=== PATIENT | female | born 1945 | race Caucasian/White ===

== ENCOUNTER → 2017-12-30 10:30 | Outpatient (CLI) | payer OTHER, MEDICARE, SELFPAY | PROVIDERS: PCP Family Medicine; Visit Provider Student in an Organized Health Care Education/Training Program | DX: Z47.1 Aftercare following joint replacement surgery (principal); Z96.651 Presence of right artificial knee joint | CPT/HCPCS: 99213 ==

== ENCOUNTER 2018-01-01 16:00 | Outpatient (RCR) | payer OTHER, MEDICARE, SELFPAY ==
--- NOTE | 2017-12-04 09:21 | NT_ITS ---
12/04/17 No show. 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
--- NOTE | 2017-12-05 09:50 | PTTR_ITS ---
DATE: 12/05/17 SUBJECTIVE: Pt reports that she is still experiencing difficulty sleeping through the night. She states that she finds it best to be in the recliner. OBJECTIVE: Manual therapy: ([id number][1). Pt received tibial femoral and patella femoral joint mobilization to the involved LE. Pt received AAROM into knee flexion while seated with her legs off from the plinth. Pt was able to achieve 116 degrees knee flexion after mobilization was performed and lacking approx -5 degrees knee extension. Therapeutic procedures (01331p9). * X Provided skilled instruction in proper exercise performance: Pt completed open and closed chain LE strengthening, functional sit to stands with glute sets, wobble board, and cardio on the Nu Step/treadmill/UBE as per flow sheet. Pt's vitals were taken please see flow sheet for specifics. Pt was able to tolerate a slight increase in her program today. Pt did require frequent rest periods due to fatigue and slight SOB. Pt did have breakfast this am so she did not experience any dizziness today. Direct treatment time: 35 Total treatment time: 50
--- NOTE | 2017-12-10 10:19 | PTTR_ITS ---
DATE: 12/10/17 SUBJECTIVE: Kate states that she continues to have pain across the superior aspect of her R knee. She states that she has not been sleeping well due to the discomfort in her knee. She reports that she is still taking her Oxycodone regularly, and she is icing occasionally. She has a follow up with Dr. Hernandez on 12/30, and she is hoping that at that appointment, he will clear her to return to work, 4 hours per day. OBJECTIVE: Manual therapy: (62572f8). With patient seated at the edge of the plinth, performed AP/PA glides to R tibiofemoral joint. Mobilized into flexion using METs for improved ROM, where she was able to achieve 114 degrees with moderate overpressure. With patient in supine, performed AP/PA glides in loose-packed position, followed by patellar mobs in all planes. Performed hamstring stretching, then mobilized into extension utilizing METs for improved ROM, where patient was lacking 8 degrees of extension with moderate overpressure. Therapeutic procedures ([id number]). * [X] See flow sheet: Patient performed an open and closed chain LE strengthening program, as per flow sheet. Added step-downs to her program today , with good tolerance. She was able to tolerated a slight progression in her program today, modifications made are noted on flow sheet. * [X] Provided skilled instruction in proper exercise performance. * [X] Provided skilled manual cues to facilitate proper muscle recruitment and/or movement pattern: Patient required verbal and tactile cuing throughout to avoid compensatory movement patterns as well as to isolate specific musculature for proper exercise performance. * [X] Other: Patient completed the remainder of her program via [facility]. She ends with cryo to R knee x10 minutes, at no charge. Direct treatment time: 45 minutes Total treatment time: 70 minutes
--- NOTE | 2017-12-12 10:51 | NT_ITS ---
12/12/17 Cancelled today's PT session. 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
--- NOTE | 2017-12-13 11:17 | PTTR_ITS ---
DATE: 12/13/17 SUBJECTIVE: Pt reports that she is doing well today. Compliant with HEP: X Yes OBJECTIVE: Manual therapy: (32390n1). Pt received tibial femoral and patella femoral joint mobilization to the involved LE. Pt received mobilization into knee flexion while seated with legs off from the plinth. After mobilization pt was able to achieve 116 degrees knee flexion. Pt was lacking -16 degrees knee ext. Therapeutic procedures (67717e6). * X Provided skilled instruction in proper exercise performance: Pt completed open and closed chain LE strengthening, glute strengthening, functional sit to stands with glute sets, wobble board, and cardio as per flow sheet. I went over different stretching techniques to increase her knee extension. Pt completed her cardio with the wellness with Denton Escamilla Direct treatment time: 40 Total treatment time: 60
--- NOTE | 2017-12-16 08:30 | PN_ITS ---
DATE: December 16, 2017 REFERRING: Dante Hernandez MD REFERRING PROVIDER DIAGNOSIS:: S/p TKA R PHYSICAL THERAPY DIAGNOSIS: REPORTING PERIOD (for progress note and discharge note only): 11/05/17 to SUBJECTIVE: Kate notes weekly improvement in her knee pain. Her only complaint is of occasional discomfort throughout the posterior aspect of the knee with forced end range extension; and the anterior aspect of the knee with flexion. Her pre op pain has resolved. OBJECTIVE: Patient is s/p R TKA on 10/08/17. She has been undergoing PT 2x a week at our facility since one month post op. She is hoping to return to work at least 4 hours a day, once she sees her orthopedist next which is in January. Gait: She is ambulating without assistive device with minimal antalgia on the R. Has slightly excessive knee flexion during stance phase bilaterally. In standing position, with heel and back against the wall: Distance between calf is approximately 2 with end range drawing throughout the posterior aspect of the knees. ROM: In sitting position her active knee flexion is approximately 100 degrees and with mobilization I can get her to 120 with end range drawing throughout the anterior aspect of the knee. She has good accessory movements with PA glides and her tibial ER is 30 degrees, IR is at 10 degrees. Has (+) warmth throughout the R knee yet, which is to be expected. (-) erythema. Her extension is at -15 degrees, with mobilization x5 I can eventually get her down to below -10. At end range I include some anterior tibial translation and some light traction, which relieves some of the tension. She has an extension lag of less than 5 degrees. We work on some terminal knee extension with rolled pillow under her knee, she is going to include this at home. She has good patella movement. Treatment: Manual Therapy [id number] Treatment time: 30 mins Direct/Total. ASSESSMENT: Continues to make steady progress with her ROM, gait mechanics and strength. 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 I am going to cut her formal treatments down to 1x a week now, but she can come in the other 4 days for working on equipment for cardiopulmonary conditioning and overall strengthening in an independent manner. G-Codes (fill in modifier after appropriate code): Patient's primary functional limitation remains in the category of: __X__ Mobility - walking and moving around : [id number] Projected goal: __x__ Mobility - walking and moving around: [id number] STG: __6__ weeks. 1: Increase ROM of the R knee to 115 degrees of flexion, - 5 degrees extension. (MET) 2: Improve dynamic stability of the R hip and knee with emphasis on the quadricep mechanism. (PROGRESSING TOWARDS) 3: Decrease swelling of the R LE. (PARTIALLY MET) 4: Improve gait mechanics in order to increase tolerance to weight bearing activities and ability to perform all of her ADL's. (PROGRESSING TOWARDS) LTG: __12__ weeks. ALL REMAIN APPROPRIATE AND PROGRESSING TOWARDS 1: Return to premorbid level of function. 2: Return to full, pain-free, functional mobility. 3: Independent with self-maintenance program. 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 PLAN: Have Kate continue to work on her ROM, particularly terminal extension, not only passively, but actively. Begin a Minimally Supervised Program (MSP) tomorrow, when she is cleared for safe use of the equipment, etc. . . . DLW/dl
--- NOTE | 2017-12-16 09:42 | PTTR_ITS ---
DATE: 12/16/17 OBJECTIVE: This is co tx with PT Carlos A Moulton please refer to his note for specifics. Therapeutic procedures (62033l1). Consisting of light proprioceptive activities on the wobble board as well as open and closed chain LE strengthening, glute strengthening, functional sits to stands without the use of her hands with glute sets and cardiovascular exercise with the wellness. I had re-written pt's chart to have her better understand how to fill out and complete her charting. Pt is going to possibly have 1 more appt with me and then complete the MSP program and just be mobilized 1x per week. Direct treatment time: 25 minutes Total treatment time: 45 minutes
--- NOTE | 2017-12-23 15:50 | PTTR_ITS ---
DATE: 12/23/17 SUBJECTIVE: Kate states that she came from helping weed her sister's garden today, so her knee is a little sore for squatting and kneeling. OBJECTIVE: Manual therapy: (46068x6). With patient seated at edge of plinth, perform AP/ PA glides to tibiofemoral joint, followed by mobilization into flexion, where she is able to achieve 114 degrees of flexion with moderate overpressure and discomfort at end range. With patient in supine, perform patellar glides in all planes, followed by AP/PA glides in loose-packed position, followed by mobilization into extension utilizing METs for improved ROM. Patient was able to achieve -5 degrees of extension with minimal overpressure and discomfort at end range. Therapeutic procedures (29819l2). * [X] See flow sheet: Continued review of ther ex program for LE strengthening and stabilization for MSP initiation. Patient requires cuing for set-up, documentation, and to avoid compensatory movement patterns with exercises. * [X] Other: Patient completed the remainder of her ther ex program via [facility]. Direct treatment time: 30 minutes Total treatment time: 55 minutes
--- NOTE | 2018-01-01 16:30 | PTTR_ITS ---
DATE: 01/01/18 SUBJECTIVE: Pt reports that the heat is getting to her. She states that she had an appointment with the surgeon and his only concern was the adhered portion on the superior aspect of the scar and he informed her to massage it. OBJECTIVE: Manual therapy: (55649z1). Pt received tibial femoral and patella femoral joint mobilization to the involved LE. Pt received AAROM into knee flexion while in the seated position and was able to achieve 115 degrees knee flexion and lacking -8 degrees knee extension. Therapeutic procedures (73010b8). * X See flow sheet: Pt was instructed on her second MSP today. Pt seems to know her program well. I did make some slight increases to her session today. Pt should be able to complete her program independently next visit. Direct treatment time: 35 Total treatment time: 60
== END 2018-01-03 23:59 | disposition home or self-care (01) ==
LOC: PT 16:00
PROVIDERS: PCP Family Medicine; Referring Provider Student in an Organized Health Care Education/Training Program; Visit Provider Student in an Organized Health Care Education/Training Program
DX: Z47.1 Aftercare following joint replacement surgery (principal); Z96.651 Presence of right artificial knee joint
CPT/HCPCS: 97110; 97140; G8978

== ENCOUNTER 2018-01-09 14:04 | Outpatient (REF) | payer OTHER, MEDICARE, SELFPAY | END 2018-01-09 14:24 | LOC: NCHCN 14:04 | PROVIDERS: PCP Family Medicine; Visit Provider Family Medicine | DX: R30.0 Dysuria (principal) | CPT/HCPCS: 87086 ==

== ENCOUNTER 2018-01-16 00:54 | Outpatient (CLI) | payer OTHER, MEDICARE, SELFPAY ==
--- NOTE | 2018-01-16 09:10 | MERGE_ITS ---
*[facility]* *[facility]* [address] [place] [address] Date of study: 01/16/2018 Transthoracic Echocardiography M-mode, complete 2D, complete spectral Doppler, and color Doppler *STUDY CONCLUSIONS* Summary: 1. Left ventricle: The cavity size was normal. Wall thickness was increased in a pattern of moderate LVH. Systolic function was vigorous. The estimated ejection fraction was 65-70%. Wall motion was normal; there were no regional wall motion abnormalities. 2. Right ventricle: The cavity size was normal. Systolic function was normal. 3. Left atrium: The atrium was mildly dilated. 4. Aortic valve: Probably trileaflet; mildly thickened leaflets. Valve mobility was restricted. Transvalvular velocity was increased. There was mild stenosis. There was moderate regurgitation. Peak velocity (S): 2.5m/sec. VTI ratio of LVOT to aortic valve: 0.59. 5. Inferior vena cava: The vessel was patent and normal in size. The respirophasic diameter changes were in the normal range (greater than or equal to 50%), consistent with normal central venous pressure. *PATIENT PRESENTATION* Height: 160cm ((63in) ) S/D Pressure: 132 / 70 Weight: 107kg ((235.5lb) ) BSA: 2.24m^2 Test start time: 09:20 AM. Test stop time: 10:30 AM. ORDERING Sunni Taylor REFERRING Sunni Taylor PERFORMING Unknown PERFORMING [facility] GROVE SUPERINTENDENT RT Denise (R)(CT), WANG *PROCEDURE DATA* Procedure information: The patient was identified by two identifiers. This study was interpreted by [facility]. Pertinent images and digital data are archived for permanent storage and are available for subsequent review. No prior study was available for comparison. Study status: Routine. Transthoracic echocardiography. M-mode, complete 2D, complete spectral Doppler, and color Doppler. A Transthoracic Echocardiogram was performed. Scanning was performed from the parasternal, apical, subcostal, and suprasternal notch acoustic windows. Images were obtained using an [id number] cardiac ultrasound machine. Image quality was adequate. Study completion: The patient tolerated the procedure well. There were no complications. History: PMH: Systolic murmur. *CARDIAC ANATOMY* Left ventricle: The cavity size was normal. Wall thickness was increased in a pattern of moderate LVH. Systolic function was vigorous. The estimated ejection fraction was 65-70%. Wall motion was normal; there were no regional wall motion abnormalities. Findings consistent with diastolic dysfunction. There was no evidence of elevated ventricular filling pressure by Doppler parameters. Aortic valve: Probably trileaflet; mildly thickened leaflets. Valve mobility was restricted. Doppler: Transvalvular velocity was increased. There was mild stenosis. There was moderate regurgitation. VTI ratio of LVOT to aortic valve: 0.59. Valve area (VTI): 1.7cm^2. Indexed valve area (VTI): 0.8cm^2/m^2. Peak velocity ratio of LVOT to aortic valve: 0.56. Valve area (Vmax): 1.6cm^2. Indexed valve area (Vmax): 0.7cm^2/m^2. Mean velocity ratio of LVOT to aortic valve: 0.59. Valve area (Vmean): 1.7cm^2. Indexed valve area (Vmean): 0.8cm^2/m^2. Mean gradient (S): 14.4mm Hg. Peak gradient (S): 25.9mm Hg. Aorta: Aortic root: The aortic root was normal in size. Ascending aorta: The ascending aorta was normal in size. Mitral valve: Mildly thickened leaflets. Mobility was not restricted. Doppler: Transvalvular velocity was within the normal range. There was no evidence for stenosis. There was mild regurgitation. Valve area by pressure half-time: 3.3cm^2. Indexed valve area by pressure half-time: 1.5cm^2/m^2. Peak gradient (D): 4.1mm Hg. Left atrium: The atrium was mildly dilated. Right ventricle: The cavity size was normal. Systolic function was normal. Pulmonic valve: Poorly visualized. Doppler: Transvalvular velocity was within the normal range. There was no evidence for stenosis. There was no significant regurgitation. Tricuspid valve: Structurally normal valve. Doppler: Transvalvular velocity was within the normal range. There was no evidence for stenosis. There was mild regurgitation. Pulmonary artery: Poorly visualized. Pulmonary systolic pressure was within the normal range, in the range of 25mm Hg to 30mm Hg. Right atrium: The atrium was normal in size. Pericardium: There was no pericardial effusion. Systemic veins: Inferior vena cava: Well visualized. The vessel was patent and normal in size. The respirophasic diameter changes were in the normal range (greater than or equal to 50%), consistent with normal central venous pressure. Baseline ECG: Normal sinus rhythm. Measurements Left ventricle Value Reference LV ID, ED, PLAX 5.1 cm 3.5 - 6.0 LV ID, ES, PLAX 3.4 cm 2.1 - 4.0 LV PW thickness, ED, PLAX 1.2 cm LV end-diastolic volume, 1-p A2C 62 ml LV ejection fraction, 1-p A2C 71 % LV end-diastolic volume, 1-p A4C 68 ml LV ejection fraction, 1-p A4C 66 % LV e', lateral 0.076 m/sec LV E/e', lateral 13 LV e', medial 0.095 m/sec LV E/e', medial 11 LV e', average 0.086 m/sec LV E/e', average 12 Ventricular septum Value Reference IVS thickness, ED, PLAX 1.4 cm LVOT Value Reference LVOT ID, A-P 1.9 cm LVOT area 2.9 cm^2 LVOT peak velocity, S 1.42 m/sec LVOT mean velocity, S 1.04 m/sec LVOT VTI, S 29.1 cm LVOT peak gradient, S 8 mm Hg LVOT mean gradient, S 4.9 mm Hg Stroke volume (SV), LVOT DP 83 ml Stroke index (SV/bsa), LVOT DP 37 ml/m^2 Aortic valve Value Reference Aortic valve peak velocity, S 2.5 m/sec Aortic valve mean velocity, S 1.77 m/sec Aortic valve VTI, S 49.2 cm Aortic mean gradient, S 14.4 mm Hg Aortic peak gradient, S 25.9 mm Hg VTI ratio, LVOT/AV 0.59 Aortic valve area, VTI 1.7 cm^2 Velocity ratio, peak, LVOT/AV 0.56 Aortic valve area, peak velocity 1.6 cm^2 Velocity ratio, mean, LVOT/AV 0.59 Aortic valve area, mean velocity 1.7 cm^2 Aortic valve area/bsa, mean velocity 0.8 cm^2/m^2 Aortic regurg deceleration 363 cm/s^2 Aortic regurg pressure half-time 314 ms Aorta Value Reference Aortic root ID, ED 3.0 cm Ascending aorta ID, A-P, S 3.1 cm Left atrium Value Reference LA ID, A-P, ES 4.5 cm LA ID/bsa, A-P 2.0 cm/m^2 <=2.2 LA area, ES, A4C (H) 24.5 cm^2 8.8 - 23.4 LA area, ES, A2C 15 cm^2 LA volume/bsa, ES, 1-p A4C 39 ml/m^2 LA volume, ES, 2-p 58 ml LA volume/bsa, ES, 2-p 26 ml/m^2 LA/aortic root ratio 1.53 Mitral valve Value Reference Mitral E-wave peak velocity 1.01 m/sec Mitral A-wave peak velocity 0.92 m/sec Mitral deceleration time 227 ms 150 - 230 Mitral pressure half-time 66 ms Mitral peak gradient, D 4.1 mm Hg Mitral E/A ratio, peak 1.09 Mitral valve area, PHT, DP 3.3 cm^2 Tricuspid valve Value Reference Tricuspid regurg peak velocity 2.7 m/sec Tricuspid peak RV-RA gradient 28.2 mm Hg Right atrium Value Reference RA area, ES, A4C 17.4 cm^2 8.3 - 19.5 Legend: (L) and (H) terry values outside specified reference range. I have personally reviewed the images and have reviewed and edited the reported findings. Electronically signed by Timur Jerez 01/16/2018 12:23
== END 2018-01-16 01:14 ==
PROVIDERS: PCP Family Medicine; Visit Provider Family Medicine
DX: R01.1 Cardiac murmur, unspecified (principal); I51.7 Cardiomegaly; I06.2 Rheumatic aortic stenosis with insufficiency
CPT/HCPCS: 93306

== ENCOUNTER 2018-05-16 19:48 | Outpatient (REF) | payer OTHER, MEDICARE, SELFPAY ==
[2018-05-16 20:09] LABS: HCT 36.2 % (36.0-46.0); HGB 11.6 g/dL (12.0-15.5)
[2018-05-16 20:19] LABS: ALT 21 U/L (12-78); AST 18 U/L (15-37); Albumin 3.4 g/dL (3.4-5.0); Alkaline Phosphatase 115 U/L (46-116); Anion Gap 9.6 mmol/L (3-11); BUN 24 mg/dL (7-18); Bilirubin, Total 0.3 mg/dL (0.2-1.0); CO2 27.4 mmol/L (21.0-32.0); CREATININE 1.11 mg/dL (0.55-1.02); Calcium 9.1 mg/dL (8.5-10.1); Chloride 107 mmol/L (98-107); Estimated GFR 48.46 (mL/min/1.73m2); Glucose 99 mg/dL (70-100); Potassium 4.8 mmol/L (3.5-5.1); Sodium 144 mmol/L (136-145); Total Protein 7.5 g/dL (6.4-8.2)
[2018-05-16 20:45] LABS: Hemoglobin A1C 6.2 % (4.5-6.2)
== END 2018-05-16 20:08 ==
LOC: NCHCN 19:48
PROVIDERS: PCP Family Medicine; Visit Provider Family Medicine
DX: I10 Essential (primary) hypertension (principal); E03.9 Hypothyroidism, unspecified; Z86.2 Personal history of diseases of the blood and blood-forming organs and certain disorders involving the immune mechanism
CPT/HCPCS: 80053; 83036; 85014; 85018

== ENCOUNTER 2018-10-13 09:51 | Outpatient (CLI) | payer OTHER, MEDICARE, SELFPAY ==
--- NOTE | 2018-10-13 09:45 | DI.RAD_ITS ---
SYMPTOM/DIAGNOSIS: RT TKA RIGHT KNEE: Two views. Comparison 10/21/17 The patient's right total knee replacement appears stable. The bones are intact. The soft tissues are unremarkable.
== END 2018-10-13 10:11 ==
PROVIDERS: PCP Family Medicine; Visit Provider Physician Assistant
DX: Z96.651 Presence of right artificial knee joint (principal)
CPT/HCPCS: 73560

== ENCOUNTER 2018-10-13 10:09 | Outpatient (CLI) | payer OTHER, MEDICARE, SELFPAY ==
[2018-10-13 10:28] LABS: HCT 37.2 % (36.0-46.0); HGB 11.9 g/dL (12.0-15.5)
[2018-10-13 11:36] LABS: Hemoglobin A1C 5.9 % (4.5-6.2)
[2018-10-13 11:52] LABS: TSH (W/Ref FT4) 2.73 uIU/mL (0.358-3.74)
== END 2018-10-13 10:29 ==
PROVIDERS: PCP Family Medicine; Visit Provider Family Medicine
DX: E03.9 Hypothyroidism, unspecified (principal); Z86.2 Personal history of diseases of the blood and blood-forming organs and certain disorders involving the immune mechanism
CPT/HCPCS: 36415; 83036; 84443; 85014; 85018

== ENCOUNTER 2019-10-06 08:29 | Outpatient (CLI) | payer OTHER, MEDICARE, SELFPAY ==
[2019-10-07 01:59] LABS: COVID-19 RT-PCR UVMMC Result Negative (Negative)
== END 2019-10-06 08:49 ==
PROVIDERS: PCP Family Medicine; Visit Provider Family Medicine
DX: Z11.59 Encounter for screening for other viral diseases (principal)
CPT/HCPCS: U0003

== ENCOUNTER 2019-12-25 18:54 | Outpatient (REF) | payer OTHER, MEDICARE, SELFPAY ==
[2019-12-25 19:28] LABS: Abs Immature Grans 0.02 10^3/uL (0.0-0.06); Absolute Basophil Count 0.02 10^3/uL (0.0-0.2); Absolute Eosinophil Count 0.12 10^3/uL (0.0-0.7); Absolute Lymphocyte Count 1.25 10^3/uL (1.2-3.4); Absolute Monocyte Count 0.45 10^3/uL (0.1-0.8); Absolute Neutrophil Count 3.55 10^3/uL (1.2-6.7); Basophils % 0.4; Eosinophils % 2.2; HCT 36.8 % (36.0-46.0); HGB 11.6 g/dL (11.2-15.7); Immature Grans % 0.4; Lymphocytes % 23.1; MCHC 31.5 % (32.0-36.0); MCV 98.4 fL (80-95); MPV 11.1 fL (8.0-11.0); Monocytes % 8.3; Neutrophils % 65.6; Nucleated RBC 0 %; Platelet Count 162 10^3/uL (130-400); RBC 3.74 10^6/uL (3.93-5.22); RDW 13.4 % (11.7-14.6); RDW-SD 47.9 fL; WBC 5.41 10^3/uL (4.4-10.8)
[2019-12-25 20:03] LABS: Hemoglobin A1C 5.9 % (3.8-5.6)
[2019-12-25 20:06] LABS: ALT 22 U/L (14-59); AST 18 U/L (15-37); Albumin 3.2 g/dL (3.4-5.0); Alkaline Phosphatase 93 U/L (46-116); Anion Gap 8.9 mmol/L (3-11); BUN 21 mg/dL (7-18); Bilirubin, Total 0.3 mg/dL (0.2-1.0); CO2 28.1 mmol/L (21.0-32.0); CREATININE 0.87 mg/dL (0.55-1.02); Calcium 8.7 mg/dL (8.5-10.1); Chloride 106 mmol/L (98-107); Glucose 99 mg/dL (74-106); Potassium 4.1 mmol/L (3.5-5.1); Sodium 143 mmol/L (136-145); TSH 2.41 uIU/mL (0.36-3.74); Total Protein 7.3 g/dL (6.4-8.2)
== END 2019-12-25 19:14 ==
LOC: NCHCN 18:54
PROVIDERS: PCP Family Medicine; Visit Provider Family Medicine
DX: R73.03 Prediabetes (principal)
CPT/HCPCS: 80053; 83036; 84443; 85025

== ENCOUNTER 2020-02-15 10:32 | Outpatient (REF) | payer OTHER, MEDICARE, SELFPAY ==
--- NOTE | 2020-02-15 09:45 | SKI_PTH ---
PATIENT: Kate Billingsley LOC: [facility] U#:[id number] AGE/SX: 74/F ROOM: RE02/15/[address]: Klaus Chowdhury DO : 1945 BED: DIS: 02/15/2020 SPEC #: [id number] RECD: 02/15/20 18:26 STATUS: SINDY REQ #: [id number] CURTIS: 02/15/20 09:[address]: Klaus Chowdhury DEPT: Surgical Specimen RECD BY: Mel Parker ENTERED: 02/15/20 18:27 SP TYPE: SKI OTHR DR: Sunni Taylor V Tissues: 1 - SKIN BIOPSY(SHAVE/PUNCH) Procedures: SKIN LEVEL 4 Comments: [id number]
== END 2020-02-15 10:52 ==
LOC: LBN 10:32
PROVIDERS: PCP Family Medicine; Visit Provider Otolaryngology Otolaryngology/Facial Plastic Surgery
DX: C44.319 Basal cell carcinoma of skin of other parts of face (principal)
CPT/HCPCS: 88305

== ENCOUNTER 2020-06-10 01:47 | Outpatient (CLI) | payer OTHER, SELFPAY ==
[2020-06-12 12:44] LABS: COVID-19 RT-PCR UVMMC Result Negative (Negative)
== END 2020-06-10 01:48 | disposition home or self-care (01) ==
LOC: LBO 01:48
PROVIDERS: PCP Family Medicine; Visit Provider Family Medicine
DX: Z01.818 Encounter for other preprocedural examination (principal); Z20.822 Contact with and (suspected) exposure to COVID-19
CPT/HCPCS: U0003

== ENCOUNTER 2020-06-14 02:51 | Outpatient (CLI) | payer OTHER, SELFPAY ==
[2020-06-14] MEDS: Methacholine 100 MG VIAL IH (16:48)
[2020-06-14] MEDS: Albuterol HFA 18 GM 200 PUFF INH IH (16:48)
[2020-06-14] MEDS: Inhaler, Assist Device 1 EACH MC (16:49)
--- NOTE | 2020-06-15 14:59 | W.PFT ---
Date of service: 06/14/20 Time of Service: 03:01 Pulmonary Function Test Result Interpretation Spirometry: No evidence of obstructive airways disease, no bronchodilator testing was carried out Lung Volumes: Shows mild restriction Diffusion Capacity: Severely reduced, this is mildly reduced when corrected to alveolar volume Airway Pressure: Normal Impression Mild restrictive pattern, this is associated with severe diffusion defect Clinical Correlation therefore is recommended.
--- NOTE | 2020-06-15 15:02 | W.PFT ---
Date of service: 06/14/20 Time of Service: 15:01 Pulmonary Function Test Result Clinical Correlation therefore is recommended. Methacholine Challnege Test Note After pulmonary function testing showing no obstruction but mild restrictive fat pattern with severe diffusion defect, methacholine challenge testing was carried out up to methacholine concentration of 16 mg/mL. Patient did not have any drop in FEV1. Impression Negative methacholine bronchoprovocation challenge test Underlying PFT shows restrictive pattern with severe diffusion defect
--- NOTE | 2020-06-15 15:04 | W.PFT ---
Date of service: 06/14/20 Time of Service: 15:01 Pulmonary Function Test Result Interpretation Spirometry: No evidence of obstructive airways disease, no bronchodilator response Lung Volumes: Shows mild restriction Diffusion Capacity: Severely reduced, this is mildly reduced when corrected to alveolar volume Airway Pressure: Normal Impression Mild restrictive lung disease associated with severe diffusion defect Clinical Correlation therefore is recommended.
== END 2020-06-14 02:52 | disposition home or self-care (01) ==
LOC: RT 02:51
PROVIDERS: PCP Family Medicine; Visit Provider Family Medicine
DX: R06.02 Shortness of breath (principal); R06.09 Other forms of dyspnea; J98.4 Other disorders of lung
CPT/HCPCS: 94060; 94726; 94729; 95070; 94010; J7674

== ENCOUNTER 2020-11-24 10:50 | Outpatient (REF) | payer OTHER, SELFPAY ==
[2020-11-24 19:26] LABS: ALT 22 U/L (14-59); AST 19 U/L (15-37); Albumin 3.3 g/dL (3.4-5.0); Alkaline Phosphatase 95 U/L (46-116); Anion Gap 9.8 mmol/L (3-11); BUN 20 mg/dL (7-18); Bilirubin, Total 0.3 mg/dL (0.2-1.0); CO2 28.2 mmol/L (21.0-32.0); CREATININE 1.1 mg/dL (0.55-1.02); Calcium 9.1 mg/dL (8.5-10.1); Calculated LDL 63 mg/dL (<100); Chloride 107 mmol/L (98-107); Cholesterol 155 mg/dL (<200); Estimated GFR 48.69 (mL/min/1.73m2); Glucose 101 mg/dL (74-106); HDL Cholesterol 37 mg/dL (40-60); Sodium 145 mmol/L (136-145); TSH (W/Ref FT4) 0.78 uIU/mL (0.36-3.74); Total Protein 7.3 g/dL (6.4-8.2); Triglyceride 275 mg/dL (<150)
[2020-11-24 19:27] LABS: Hemoglobin A1C 5.9 % (<5.7)
[2020-11-29 21:06] LABS: Codeine Negative ng/mL (Cutoff: 25); Dihydrocodeine Negative ng/mL (Cutoff: 25); Hydrocodone Negative ng/mL (Cutoff: 25); Hydromorphone Negative ng/mL (Cutoff: 25); Morphine Negative ng/mL (Cutoff: 25); Naloxone Negative ng/mL (Cutoff: 25); Norhydrocodone Negative ng/mL (Cutoff: 25); Noroxycodone 3438 ng/mL (Cutoff: 25); Noroxymorphone 192 ng/mL (Cutoff: 25); Opiates Interpretation Positive.
== END 2020-11-24 10:51 | disposition home or self-care (01) ==
LOC: NCHCN 10:50
PROVIDERS: PCP Family Medicine; Visit Provider Family Medicine
DX: Z51.81 Encounter for therapeutic drug level monitoring (principal); E03.9 Hypothyroidism, unspecified; I10 Essential (primary) hypertension; M19.90 Unspecified osteoarthritis, unspecified site; R73.03 Prediabetes
CPT/HCPCS: 80053; 80061; 80333; 80361; 80362; 80365; 83036; 84443

== ENCOUNTER 2021-04-13 09:57 | Outpatient (CLI) | payer OTHER, SELFPAY ==
--- NOTE | 2021-04-13 13:15 | DI.RAD_ITS ---
Exam(s) XR FOOT RT COMPLETE EXAM: XR FOOT RT COMPLETE CLINICAL HISTORY: FOOT PAIN, [id number]. TECHNIQUE: 2D digital imaging was performed. COMPARISON: No exams were available for comparison FINDINGS: There is abundant soft tissue swelling around the foot, most prominent dorsally. There is, however, no evidence of fracture nor diastasis the [place] joint. No osseous lesions nor erosions. Some degenerative changes noted articulation the and medial cuneiform. There is no radio paque foreign body. There is no radiographic evidence of osteomyelitis. Moderate size inferior calc aneal spur is noted. IMPRESSION: DATA REPOSITORY: RADIATION DOSE DELIVERED:
== END 2021-04-13 10:17 ==
PROVIDERS: PCP Family Medicine; Visit Provider Family Medicine
DX: M79.671 Pain in right foot (principal)
CPT/HCPCS: 73630

== ENCOUNTER 2021-06-20 15:21 | Outpatient (REF) | payer OTHER, SELFPAY ==
[2021-06-20 21:19] LABS: HCT 36.4 % (36.0-46.0); HGB 11.2 g/dL (11.2-15.7); MCH 31.2 pg (27.0-33.0); MCHC 30.8 % (32.0-36.0); MCV 101.4 fL (80-95); MPV 11.2 fL (8.0-11.0); Platelet Count 179 10^3/uL (130-400); RBC 3.59 10^6/uL (3.93-5.22); RDW 13.4 % (11.7-14.6); RDW-SD 49.8 fL; WBC 5.29 10^3/uL (4.4-10.8)
[2021-06-20 21:46] LABS: Hemoglobin A1C 5.8 % (<5.7)
[2021-06-20 22:39] LABS: Anion Gap 12.3 mmol/L (3-11); BUN 20 mg/dL (7-18); CO2 25.7 mmol/L (21.0-32.0); CREATININE 1.1 mg/dL (0.55-1.02); Calcium 8.8 mg/dL (8.5-10.1); Chloride 107 mmol/L (98-107); Estimated GFR 48.55 (mL/min/1.73m2); Folate 13.5 ng/mL (8.6-20.0); Glucose 105 mg/dL (74-106); Sodium 145 mmol/L (136-145); TSH (W/Ref FT4) 1.04 uIU/mL (0.36-3.74); Vitamin B12 830 pg/mL (193-986)
[2021-06-21 19:52] LABS: Ferritin 64 ng/mL (10-291)
== END 2021-06-20 15:22 | disposition home or self-care (01) ==
LOC: NCHCN 15:21
PROVIDERS: PCP Family Medicine; Visit Provider Family Medicine
DX: Z86.2 Personal history of diseases of the blood and blood-forming organs and certain disorders involving the immune mechanism (principal); I10 Essential (primary) hypertension; E03.9 Hypothyroidism, unspecified; R73.03 Prediabetes
CPT/HCPCS: 80048; 85027; 82607; 82728; 82746; 83036; 84443

== ENCOUNTER 2021-07-19 01:55 | Outpatient (CLI) | payer OTHER, SELFPAY ==
--- NOTE | 2021-07-19 | DI.US_ITS ---
Exam(s) US THYROID EXAM: US THYROID CLINICAL HISTORY: FAM HX THYROID GLAND CANCER Z80.8. TECHNIQUE: Ultrasound thyroid performed using standard protocol. COMPARISON: None FINDINGS: Both thyroid lobes as well as the isthmus exhibit normal size and relatively homogeneous echotexture. There are no thyroid nodules evident. LYMPH NODES: There is no significant adenopathy. IMPRESSION: No significant findings on this thyroid ultrasound examination. DATA REPOSITORY:
== END 2021-07-19 02:15 ==
PROVIDERS: PCP Family Medicine; Visit Provider Family Medicine
DX: Z80.8 Family history of malignant neoplasm of other organs or systems (principal)
CPT/HCPCS: 76536

== ENCOUNTER 2022-09-25 15:04 | Outpatient (REF) | payer OTHER, SELFPAY ==
[2022-09-25 18:57] LABS: HCT 33.4 % (36.0-46.0); HGB 10.9 g/dL (11.2-15.7)
[2022-09-25 19:37] LABS: ALT 14 U/L (14-59); AST 14 U/L (15-37); Alkaline Phosphatase 88 U/L (46-116); Anion Gap 6.9 mmol/L (3-11); BUN 17 mg/dL (7-18); Bilirubin, Total 0.5 mg/dL (0.2-1.0); CO2 29.1 mmol/L (21.0-32.0); CREATININE 1.2 mg/dL (0.55-1.02); Calcium 8.9 mg/dL (8.5-10.1); Chloride 104 mmol/L (98-107); Estimated GFR 47.21 (mL/min/1.73m2); Glucose 114 mg/dL (74-106); Sodium 140 mmol/L (136-145); TSH (W/Ref FT4) 1.25 uIU/mL (0.36-3.74); Vitamin B12 902 pg/mL (193-986)
[2022-09-25 20:24] LABS: Hemoglobin A1C 5.7 % (<5.7)
== END 2022-09-25 15:05 | disposition home or self-care (01) ==
LOC: NCHCN 15:04
PROVIDERS: PCP Family Medicine; Visit Provider Family Medicine
DX: R73.03 Prediabetes (principal); I10 Essential (primary) hypertension; E03.9 Hypothyroidism, unspecified; Z86.2 Personal history of diseases of the blood and blood-forming organs and certain disorders involving the immune mechanism
CPT/HCPCS: 80053; 82607; 83036; 84443; 85014; 85018

== ENCOUNTER 2023-03-07 16:08 | Outpatient (REF) | payer OTHER, SELFPAY ==
[2023-03-07 15:09] LABS: HCT 35.5 % (36.0-46.0); HGB 11.7 g/dL (11.2-15.7); MCH 31.8 pg (27.0-33.0); MCV 97 fL (80-95); MPV 10.8 fL (8.0-11.0); Platelet Count 176 10^3/uL (130-400); RBC 3.68 10^6/uL (3.93-5.22); RDW 13.7 % (11.7-14.6); RDW-SD 48.4 fL; WBC 5.44 10^3/uL (4.4-10.8)
[2023-03-07 15:38] LABS: ALT 18 U/L (14-59); AST 17 U/L (15-37); Albumin 3.4 g/dL (3.4-5.0); Alkaline Phosphatase 100 U/L (46-116); Anion Gap 10.9 mmol/L (3-11); BUN 18 mg/dL (7-18); Bilirubin, Total 0.3 mg/dL (0.2-1.0); CO2 27.1 mmol/L (21.0-32.0); CREATININE 1.1 mg/dL (0.55-1.02); Calcium 9.7 mg/dL (8.5-10.1); Chloride 104 mmol/L (98-107); Estimated GFR 52.08 (mL/min/1.73m2); Ferritin 100 ng/mL (8-252); Glucose 113 mg/dL (74-106); Potassium 3.9 mmol/L (3.5-5.1); Sodium 142 mmol/L (136-145); TSH (W/Ref FT4) 1.37 uIU/mL (0.36-3.74); Total Protein 8.6 g/dL (6.4-8.2)
[2023-03-07 15:56] LABS: Hemoglobin A1C 5.7 % (<5.7)
== END 2023-03-07 16:09 | disposition home or self-care (01) ==
LOC: NCHCN 16:08
PROVIDERS: PCP Family Medicine; Visit Provider Family Medicine
DX: R73.03 Prediabetes (principal); D64.9 Anemia, unspecified; E03.9 Hypothyroidism, unspecified
CPT/HCPCS: 80053; 85027; 82728; 83036; 84443

== ENCOUNTER 2024-08-04 18:29 | Outpatient (REF) | payer MEDICARE, SELFPAY ==
[2024-08-04 18:26] LABS: ALT 15 U/L (14-59); AST 13 U/L (15-37); Albumin 2.9 g/dL (3.4-5.0); Alkaline Phosphatase 93 U/L (46-116); Anion Gap 7.3 mmol/L (3-11); BUN 33 mg/dL (7-18); Bilirubin, Total 0.3 mg/dL (0.2-1.0); CO2 29.7 mmol/L (21.0-32.0); CREATININE 1.2 mg/dL (0.55-1.02); Calcium 9.2 mg/dL (8.5-10.1); Calculated LDL 60 mg/dL (<100); Chloride 108 mmol/L (98-107); Cholesterol 137 mg/dL (<200); Estimated GFR 46.62 (mL/min/1.73m2); Glucose 113 mg/dL (74-106); HDL Cholesterol 47 mg/dL (>or=50); Potassium 4.2 mmol/L (3.5-5.1); Sodium 145 mmol/L (136-145); TSH (W/Ref FT4) 0.35 uIU/mL (0.36-3.74); Total Protein 8.4 g/dL (6.4-8.2); Triglyceride 153 mg/dL (<150)
[2024-08-04 18:43] LABS: HCT 31.6 % (36.0-46.0); HGB 9.9 g/dL (11.2-15.7)
[2024-08-04 18:47] LABS: FREE T4 1.05 ng/dL (0.76-1.46)
== END 2024-08-04 18:30 | disposition home or self-care (01) ==
LOC: NCHCN 18:29
PROVIDERS: PCP Family Medicine; Visit Provider Family Medicine
DX: Z00.00 Encounter for general adult medical examination without abnormal findings (principal)
CPT/HCPCS: 80053; 80061; 84439; 84443; 85014; 85018

== ENCOUNTER 2024-09-07 01:28 | Outpatient (CLI) | payer MEDICARE, SELFPAY ==
--- NOTE | 2024-09-07 08:30 | DI.US_ITS ---
APPROVED REPORT EXAM: Comprehensive 2D, Doppler, and color-flow Echocardiogram Patient Location: Out-Patient Truck Bracer: Danielito Henson RDCS (AE) Indications: Prior history of aortic stenosis Other Information Study Quality: Fair. Technically limited study due to body habitus, patient unable to tolerate adequa te compression due to pain. Conclusion Technically difficult study Mild concentric left ventricular hypertrophy. Ejection fraction is 58%. Wall motion is normal Normal right ventricular size and function Both atria are normal in size Aortic valve is mildly sclerotic and trileaflet. Mean gradient is 10 mmHg Mild mitral annular calcification. Trace mitral regurgitation Wall motion Left Ventricle The left ventricle is normal size. The left ventricular systolic function is normal. The left ventric ular ejection fraction is within the normal range. Mild concentric left ventricular hypertrophy. Ther e is normal LV segmental wall motion. There is no ventricular septal defect visualized. LVEF is 58%. Right Ventricle The right ventricle is normal size. The right ventricular systolic function is normal. Atria The left atrium size is normal. The right atrium size is normal. The interatrial septum is intact wit h no evidence for an atrial septal defect. Aortic Valve The aortic valve is mildly sclerotic. Mean gradient is 10 mmHg No aortic regurgitation is present. Mitral Valve Mild mitral annular calcification. No evidence of mitral valve stenosis. Trace mitral regurgitation. Tricuspid Valve The tricuspid valve is grossly normal in structure. There is no tricuspid valve stenosis. Trace tricu spid regurgitation. Pulmonic Valve Pulmonic valve is not well visualized. Great Vessels The aortic root is normal in size. The ascending aorta is normal in size. IVC is normal in size and c ollapses >50% with inspiration. Pericardium There is no pericardial effusion. 2D Dimensions IVSD d PLAX 1.18 cm F: 0.6-1.0 Ao Root d 2.74 cm F: 2.7 - 3.3 LVPW d PLAX 1.16 cm F: 0.6 - 1.0 Ao Asc Diam d 3.08 cm F: 2.3 - 3.1 LVID d PLAX 5.60 cm F: 3.8 - 5.2 LVDs 3.78 cm F: 2.2 - 3.5 LV EF Teichholz 60.3 % FS 32.55 % LV EDV (Teich) 153.7 mL LV ESV (Teich) 61.1 mL Stroke Vol Index (Teich) 44.97 Auto EF LV EDV A4C 101.0 mL LV EDV A2C 66.4 mL LV EDV BP 82.7 mL LV ESV A4C 45.5 mL LV ESV A2C 26.6 mL LV ESV BP 34.5 mL LVEF(%) A4C 55.0 % LVEF(%) A2C 60.0 % LVEF(%) BP 58.3 % LV SV A4C 55.5 ml LV SV A2C 39.8 ml LV SV BP 48.2 ml LV CO A4C 4.6 L/min LV CO A2C 3.3 L/min LV CO BP 4.0 L/min HR A4C 83.10 BPM HR A2C 83.14 BPM LV EDV Index (BP) LA Volume LA Length A4C 5.1 cm LA Length A2C 5.3 cm LA Area A4C s 15.77 cm2 LA Area A2C s 12.88 cm2 LA Vol A4C A-L 41.56 mL LA Vol A2C A-L 26.58 mL LA Vol Biplane A-L 33.9 mL LA Vol/BSA A4C A-L LA Vol/BSA A2C A-L LA Vol/BSA BP A-L 16.5 mL/m2 LA Vol A4C MOD 39.1 mL LA Vol A2C MOD 25.1 mL LA Vol BP MOD 31.9 mL RA Volume RA Area A4C 8.8 cm2 RA ESV A4C (A-L) 15.9mL RA Vol/BSA A4C A-L RA Length A4C 4.2 cm RA ESV A4C (MOD) 15.1mL LV Diastology MV E' medial 0.088 (>0.07 m/s) MV E Vmax 0.78 (0.4-1.3 m/s) MV E/E' MED 8.85 (<14) MV A Vmax 1.30 (0.4-1.3 m/s) MV E' lateral 0.095 (>0.1 m/s) E/A Ratio 0.6 MV E/E' LAT 8.26 (<14) MV E' Average 0.091 m/s MV E/E'(average) 8.54 Aortic Valve AoV Vmax 2.12 m/s LVOT Vmax 1.10 m/s AoV Peak Grad 18.0 mmHg LVOT Peak Grad 4.8 mmHg AoV Area (Vmax) 1.45 cm2 LVOT VTI 0.258 m AoV VTI 0.469 m LVOT Mean Grad 2.7 mmHg AoV Mean Alexandr. 1.57 m/s LVOT SV 71.96 mL AoV Mean Grad 10.8 mmHg LVOT Diam s 1.85 cm AoV Area (VTI) 1.53 cm2 AV Regurg Peak Gr. 17.97 mmHg Velocity Ratio 0.52 Mitral Valve MV DT 239 (160-240 msec) Tricuspid Valve TV S' 0.15 m/s
== END 2024-09-07 01:48 ==
PROVIDERS: PCP Family Medicine; Visit Provider Internal Medicine Cardiovascular Disease
DX: I35.0 Nonrheumatic aortic (valve) stenosis (principal)
CPT/HCPCS: 93306

== ENCOUNTER 2024-10-01 02:47 | Outpatient (CLI) | payer MEDICARE, SELFPAY ==
--- NOTE | 2024-10-01 15:00 | DI.US_ITS ---
APPROVED REPORT Exam: Exercise Treadmill Patient Location: Out-Patient Room/Bed: Stress Nurse: Janna Meyer RN Ordering Provider:DONAL RHINA, Contact Number: [phone] BMI: 47.29 Baseline Rhythm: Sinus Rhythm Comment: Occasional PVC's Indications: Dyspnea, Medical History Medical History: EF 58%, aortic valve stenosis, hx malignant neoplasm of ovary, obesity, HLD, HTN, in somnia, adjustment disorder, hx anemia, prediabetes, exercise induced bronchospasm, pain disorder wit h psychological component, BPPV Cardiac Medications: Simvastatin, levothyroxine, hydrochlorothiazide, oxycodone, iron, budesonide-for moterol HFA, mirabegon Allergies: Capsaicin, ibuprofen Cardiac Risk Factors: Prediabetes, HTN, HLD, obesity Previous Cardiac Procedures: None Pretest Chest Pain Characteristics: None Exercise History: Indeterminate Physical Disabilities: back pain Lung Sounds: Clear to auscultation Heart Sounds: Irregular Stress Test Details Test: Exercise stress testing was performed using a Jann protocol. Rest Stress HR Resting HR Supine: 85 bpm Max Heart Rate (APMHR): 143 bpm Resting HR Standin bpm Target HR (85% APMHR): 122 bpm Max HR Achieved: 140 bpm % of APMHR: 98 Recovery HR: 98 bpm HR response to stress: Accelerated HR response to stress BP Resting BP Supine: 150/76 mmHg Resting BP Standin/98 mmHg Max BP: 184/90 mmHg Recovery BP: 148/88 mmHg BP response to stress: Normal blood pressure response to stress. ECG Resting ECG: Sinus Rhythm Ectopy: Occasional PVC's Stress ECG: Sinus Tachycardia ST Change: No significant ST segment changes noted Arrhythmia: Frequent PVC's, couplets, bigeminy Recovery ECG: Sinus Rhythm Recovery ST Change: No significant ST segment changes noted Recovery Arrhythmia: Frequent PVC's, couplets, bigeminy Clinical Reason for Termination: Fatigue, SOB Stress Symptoms: General Fatigue, moderate-severe SOB Exercise duration: 01 min43 sec Highest Stage Reached: Stage 1: 1.7 mph at 10% grade. Exercise capacity: 3.99 METs Angina Score: None Rate Pressure Product: [id number] Stress ECG Conclusion 1. Resting electrocardiogram showed poor R wave progression 2. Patient exercised on the treadmill for only 1 minute and 43 seconds, poor exercise capacity 3. Rapid heart rate response to exercise. The patient achieved 98% of maximal predicted heart rate f or age 4. There was no electrocardiographic evidence of myocardial ischemia 5. There were frequent premature ventricular contractions 6. Resting echocardiogram showed normal LV function, normal wall motion 7. Postexercise echocardiogram showed augmented contractility of all segments. There was no echocard iographic evidence of myocardial ischemia Stress Test Summary STAGE Time (mins) Speed (mph) Grade (%) HR BP SpO2 SYMPTOMS METS Supine 85 150/76 97% Standing 99 172/98 1 3 1.7 10 138 Mod-severe SOB 4.5 1 min recovery 103 184/90 97% Mod-severe SOB 3 min recovery 99 160/90 Mod SOB 6 min recovery 98 148/88 97% SOB resolved.
== END 2024-10-01 03:07 ==
LOC: DI 02:48
PROVIDERS: PCP Family Medicine; Visit Provider Internal Medicine Cardiovascular Disease
DX: R06.00 Dyspnea, unspecified (principal); I49.3 Ventricular premature depolarization
CPT/HCPCS: 93306; 93350; 93017

== ENCOUNTER 2025-01-27 04:15 | Outpatient (CLI) | payer MEDICARE, SELFPAY ==
[2025-01-27 16:16] LABS: ALT 15 U/L (14-59); AST 13 U/L (15-37); Albumin 2.9 g/dL (3.4-5.0); Alkaline Phosphatase 102 U/L (46-116); Anion Gap 8.5 mmol/L (3-11); BUN 19 mg/dL (7-18); Bilirubin, Total 0.4 mg/dL (0.2-1.0); CO2 29.5 mmol/L (21.0-32.0); Calcium 9.3 mg/dL (8.5-10.1); Chloride 102 mmol/L (98-107); Estimated GFR 46.33 (mL/min/1.73m2); Glucose 119 mg/dL (74-106); Potassium 3.9 mmol/L (3.5-5.1); Sodium 140 mmol/L (136-145); TSH (W/Ref FT4) 1.60 uIU/mL (0.36-3.74); Total Protein 8.7 g/dL (6.4-8.2)
== END 2025-01-27 04:16 | disposition home or self-care (01) ==
LOC: LBO 04:15
PROVIDERS: PCP Family Medicine; Visit Provider Family Medicine
DX: I10 Essential (primary) hypertension (principal)
CPT/HCPCS: 36415; 80053; 84443

== ENCOUNTER 2025-02-05 04:31 | Outpatient (CLI) | payer MEDICARE, SELFPAY ==
--- NOTE | 2025-02-05 | DI.RAD_ITS ---
Exam(s) XR CHEST 2V PA LATERAL EXAM: XR CHEST 2V PA LATERAL CLINICAL HISTORY: DYSPNEA R06.00. TECHNIQUE: 2D digital imaging was performed. COMPARISON: CR CHEST 2 VIEWS PA,LAT from 09/23/2010 CT RENAL COLIC WO CONTRAST from 10/02/2016 FINDINGS: 2 views: Heart size is normal. The mediastinum is not widened. Right lung is clear. There is an abnormal density overlying the lateral aspect of the left upper lobe which measures approximately 3.4 by 2.2 cm, probably pleural based. Requires further study. There are no other focal lung findings. No pleural effusions. No pulmonary edema. IMPRESSION: There is abnormal peripherally located 3.4 x 2.2 cm density in the peripheral left upper lobe region. either lung or pleural based lesion. CT scan is recommended. DATA REPOSITORY: RADIATION DOSE DELIVERED:
== END 2025-02-05 04:51 ==
LOC: DI 04:31
PROVIDERS: PCP Family Medicine; Visit Provider Family Medicine
DX: R91.8 Other nonspecific abnormal finding of lung field (principal); R06.00 Dyspnea, unspecified
CPT/HCPCS: 71046

== ENCOUNTER 2025-02-05 12:03 | Outpatient (CLI) | payer MEDICARE, SELFPAY ==
[2025-02-05 12:17] LABS: Abs Immature Grans 0.02 10^3/uL (0.0-0.06); HCT 29.2 % (36.0-46.0); HGB 9.1 g/dL (11.2-15.7); Immature Grans % 0.4 %; MCH 31.5 pg (27.0-33.0); MCHC 31.2 % (32.0-36.0); MCV 101 fL (80-95); MPV 10.2 fL (8.0-11.0); Platelet Count 129 10^3/uL (130-400); RBC 2.89 10^6/uL (3.93-5.22); RDW 14.1 % (11.7-14.6); RDW-SD 51.5 fL; WBC 4.93 10^3/uL (4.4-10.8)
[2025-02-05 12:58] LABS: Iron 41 ug/dL (50-170); Total Iron Binding Capacity 213 ug/dL (250-450)
[2025-02-05 13:05] LABS: Ferritin 101 ng/mL (8-252)
== END 2025-02-05 12:04 | disposition home or self-care (01) ==
LOC: LBO 12:03
PROVIDERS: PCP Family Medicine; Visit Provider Family Medicine
DX: D64.9 Anemia, unspecified (principal)
CPT/HCPCS: 36415; 82728; 83540; 83550; 85025

== ENCOUNTER → 2025-02-22 09:24 | Outpatient (BNVA) | payer MEDICARE, SELFPAY | PROVIDERS: PCP Family Medicine; Referring Provider Family Medicine; Visit Provider Internal Medicine Pulmonary Disease | DX: R06.02 Shortness of breath (principal); D53.9 Nutritional anemia, unspecified; E66.9 Obesity, unspecified; R91.8 Other nonspecific abnormal finding of lung field; J98.4 Other disorders of lung | CPT/HCPCS: 36415; 99205 ==

== ENCOUNTER 2025-02-22 10:54 | Outpatient (REF) | payer MEDICARE, SELFPAY ==
[2025-02-22 12:55] LABS: Folate 8.4 ng/mL (8.6-20.0)
== END 2025-02-22 10:55 | disposition home or self-care (01) ==
LOC: LBN 10:54
PROVIDERS: PCP Family Medicine; Visit Provider Internal Medicine Pulmonary Disease
DX: D53.9 Nutritional anemia, unspecified (principal)
CPT/HCPCS: 82746

== ENCOUNTER 2025-02-26 03:30 | Outpatient (CLI) | payer MEDICARE, SELFPAY ==
[2025-02-26] MEDS: Inhaler, Assist Device 1 EACH MC (16:22)
[2025-02-26] MEDS: Levalbuterol HFA 15 GM INH 4 PUFF IH (16:23)
--- NOTE | 2025-03-02 07:53 | W.PFT ---
Date of service: 02/26/25 Time of Service: 15:22 Pulmonary Function Test Result Indications: Dyspnea Impression 1. Good patient effort was noted. ATS standards for reproducibility were met. 2. Normal spirometry. 3. Following the administration of a bronchodilator there was not a significant response 4. TLC was at the lower end of normal at 80% predicted. This improved from 75% in 06/2020. 5. DLCO was reduced at 64%, indicating a moderate defect in alveolar gas exchange. This improved from 44% in 06/2020.
== END 2025-02-26 03:31 | disposition home or self-care (01) ==
LOC: RT 03:30
PROVIDERS: PCP Family Medicine; Visit Provider Internal Medicine Pulmonary Disease
DX: R06.02 Shortness of breath (principal)
CPT/HCPCS: 94060; 94726; 94729

== ENCOUNTER → 2025-03-04 04:02 | Outpatient (CLI) | payer MEDICARE, SELFPAY ==
--- NOTE | 2025-03-04 | DI.CT_ITS ---
Exam(s) CT CHEST WO EXAM: CT CHEST WO CLINICAL HISTORY: SOLITARY PULM NODULE R91.1 LESION OF LUNG. TECHNIQUE: Multi planar reconstructions were performed. CONTRAST MATERIAL: None COMPARISON: CR XR CHEST 2V PA LATERAL from 02/05/2025 FINDINGS: CHEST: LUNGS: There is scattered small benign calcified granulomas in both lung cerda. There are no ominous focal right lung findings. In the left lung there is a subpleural mildly spiculated 1.5 x 1.0 cm noncalcified nodule which requires further workup to rule out malignancy. Higher up in the left lung the finding described on the recent chest radiograph of 02/05/2025 corresponds to benign-appearing herniation of axillary fat through the chest wall, measuring approximately 4.4 by 2 by 2.7 cm craniocaudal. There is no associated rib destruction. MEDIASTINUM: There is no obvious hilar nor mediastinal adenopathy. CARDIAC: Heart size is normal. There is no pericardial effusion.The diameter of the ascending thoracic aorta is upper normal. VISUALIZED UPPER ABDOMEN:Multiple gallstones are noted. No adrenal masses. No ascites. OSSEOUS: No fractures nor significant osseous lesions.. IMPRESSION: 1. Finding described on the recent chest x-ray in the lateral left upper lobe corresponds to herniation of benign axillary fat through the chest wall into the intrathoracic cavity. There is no associated bone destruction at this level. 2. Incidentally noted is a concerning nodule in the left lower lobe which is spiculated and measures 1.5 x 1.0 cm. Suspicious for possible malignancy. Appropriate follow-up recommended. 3. There are no pleural effusions nor intrathoracic adenopathy. RADIATION DOSE DELIVERED: 655.61mGy.cm Total DLP DATA REPOSITORY: All CT scans at this facility are submitted to the National Radiology Data Registry (NRDR) Dose Index Registry (DIR) with the [employer] ([employer]). RADIATION OPTIMIZATION: All CT scans at this facility use at least one of these dose optimization techniques: automated exposure control; mA and/or kV adjustment per patient size (includes targeted exams where dose is matched to clinical indication); or iterative reconstruction.
== END ==
LOC: DI 04:02
PROVIDERS: PCP Family Medicine; Visit Provider Family Medicine
DX: R91.1 Solitary pulmonary nodule (principal); D36.0 Benign neoplasm of lymph nodes
CPT/HCPCS: 71250

== ENCOUNTER → 2025-03-09 11:18 | Outpatient (BNVA) | payer MEDICARE, SELFPAY | PROVIDERS: PCP Family Medicine; Referring Provider Family Medicine; Visit Provider Internal Medicine Pulmonary Disease | DX: R91.8 Other nonspecific abnormal finding of lung field (principal); R06.00 Dyspnea, unspecified; E66.9 Obesity, unspecified; J98.4 Other disorders of lung | CPT/HCPCS: 99214 ==